=== PATIENT | female | born 2000 | race African-American/Black ===

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

== ENCOUNTER → 2018-02-03 | Outpatient (REF) | payer OTHER ==
[2018-02-03 14:14] LABS: CONTROL LINE HCG INT CTR LINE PRESENT; HCG, SERUM QUALITATIVE NEGATIVE (NEGATIVE)
== END ==
LOC: M LABNEURO 10:15
DX: G40.909 Epilepsy, unspecified, not intractable, without status epilepticus (principal)

== ENCOUNTER 2023-10-26 14:09 | Emergency (ER) | payer MEDICAID, OTHER ==
[~2023-10-26] VITALS: Ht 157.5 cm; Wt 113.0 kg
[~2023-10-26 14:09] MED LIST: MACR100C43 PO; PRED20TA PO; PYRI1TAB5 PO
[2023-10-26] MEDS ORDERED: PRENTAB9 PO (14:28)
[2023-10-26 15:34] LABS: BASO % 0.2 % (0.0-1.0); EOS # 0.1 10^3/uL (0.0-0.5); EOS % 0.8 % (0.0-3.0); HEMATOCRIT 37.6 % (36.0-47.0); HEMOGLOBIN 12.5 g/dl (12.0-15.5); LYMPH # 3.1 10^3/uL (1.5-5.0); LYMPH % 26.3 % (24.0-44.0); MEAN CORPUSCULAR HEMOGLOBIN 28.5 pg (27.0-33.0); MEAN CORPUSCULAR HGB CONC 33.2 g/dl (32.0-36.5); MEAN CORPUSCULAR VOLUME 85.6 fl (80.0-96.0); MONO # 0.8 10^3/uL (0.0-0.8); MONO % 6.4 % (2.0-8.0); NEUTROPHILS # 7.8 10^3/uL (1.5-8.5); NEUTROPHILS % 65.9 % (36.0-66.0); PLATELET COUNT, AUTOMATED 379 10^3/uL (150-450); RED BLOOD COUNT 4.39 10^6/uL (4.00-5.40); WHITE BLOOD COUNT 11.8 10^3/uL (4.0-10.0)
[2023-10-26] MEDS ORDERED: NITR100C3 PO (16:28)
[2023-10-26 16:36] VITALS: BP 134/64; TEMP 97.5; O2SAT 99
== END 2023-10-26 16:41 | disposition home or self-care (01) ==
LOC: M ED 14:09
DX: O20.8 Other hemorrhage in early pregnancy (principal); O23.41 Unspecified infection of urinary tract in pregnancy, first trimester; F17.200 Nicotine dependence, unspecified, uncomplicated; E28.2 Polycystic ovarian syndrome; Z87.42 Personal history of other diseases of the female genital tract; Z91.013 Allergy to seafood; Z91.018 Allergy to other foods; Z3A.09 9 weeks gestation of pregnancy; Z79.899 Other long term (current) drug therapy